=== PATIENT | female | born 1930 ===

== ENCOUNTER 2018-08-24 12:59 | Emergency (ER) | payer OTHER ==
[~2018-08-24] VITALS: Ht 165.1 cm; Wt 54.4 kg
[2018-08-24] MEDS ORDERED: SIMVASTATIN20 MG (13:12)
[2018-08-24] MEDS ORDERED: GLIMEPIRIDE2 MG (13:12)
[2018-08-24] MEDS ORDERED: METFORMIN HCL500 MG (13:12)
[2018-08-24] MEDS ORDERED: LOSARTAN-HCTZ1 EACH (13:12)
[2018-08-24] MEDS ORDERED: ARICEPT5 MG (13:13)
[2018-08-24] MEDS ORDERED: MYSOLINE250 MG (13:13)
[2018-08-24] MEDS ORDERED: EFFEXOR XR75 MG (13:13)
== END 2018-08-24 18:41 | disposition home or self-care (01) ==
LOC: ER 12:59
DX: G30.8 Other Alzheimer's disease (principal); R54 Age-related physical debility; E86.0 Dehydration; R06.02 Shortness of breath